=== PATIENT | female | born 1945 | race Caucasian/White ===

== ENCOUNTER 2022-09-14 11:33 | Emergency (ER) | payer OTHER ==
[~2022-09-14] VITALS: Ht 154.9 cm; Wt 73.9 kg
[2022-09-14 11:48] VITALS: BP 121/61
[2022-09-14] MEDS ORDERED: ONDANSETRON 4 MG/2 ML VIAL IVP ONE (12:40)
[2022-09-14] MEDS ORDERED: MORPHINE SULFATE 4 MG/ML SYR IVP ONE (12:40)
--- NOTE | 2022-09-14 12:53 | NUR ---
PT TAKEN TO CT VIA WC
--- NOTE | 2022-09-14 13:09 | NUR ---
Patient wheelchair assisted to bed 3.
[2022-09-14 14:08] VITALS: BP 105/61
--- NOTE | 2022-09-14 14:08 | NUR ---
76 Y/O FEMALE BIB DAUGHTER C/O LOW BACK PAIN, HIP PAIN AND DURON SP FALL X6DAYS AGO, DENIES NUMBNESS AND TINGGLING, PT IS ABLE TO MOVE LOWER EXTREMITIES, DENIES LOC, SYNCOPE pmh: htn nka med: denies
[2022-09-14] MEDS ORDERED: ACETAMINOPHEN EXTRA STRENGTH 500 MG TAB PO ONE (15:20)
--- NOTE | 2022-09-14 15:20 | NUR ---
ERMD NOTIFIED THAT ED DOES NOT HAVE BACK BRACES, ERMD STATED THAT ABDOMINAL BINDER IS FINE TO USE
--- NOTE | 2022-09-14 15:30 | NUR ---
large abdominal binder applied. pt tolerated.
--- NOTE | 2022-09-14 15:54 | NUR ---
Patient discharged with v/s stable. Written and verbal after care instructions ABOUT HIP PAIN,M LUMABR SPINE FRACTURE, HEAD INJURY, FACIAL OR SCALP CONTUSION, TENSION DURON given and explained. Patient verbalized understanding. Ambulatory with steady gait. All questions addressed prior to discharge. Advised to follow up with PMD.
== END 2022-09-14 15:54 | disposition home or self-care (01) ==
LOC: MED 11:33
DX: S32.028A Other fracture of second lumbar vertebra, initial encounter for closed fracture (principal); S00.33XA Contusion of nose, initial encounter; M25.552 Pain in left hip; M25.551 Pain in right hip; R51.9 Headache, unspecified; W01.0XXA Fall on same level from slipping, tripping and stumbling without subsequent striking against object, initial encounter; Y93.89 Activity, other specified; Y92.89 Other specified places as the place of occurrence of the external cause; Y99.8 Other external cause status
CPT/HCPCS: 70450; 70486; 72131; 72192; 96374; 96375; 99284; J2270; J2405; 99281; 99283; 99285